=== PATIENT | male | born 1985 | race Caucasian/White ===

== ENCOUNTER 2021-09-11 15:22 | Emergency (ER) | payer OTHER ==
[2021-09-11 15:37] VITALS: RESP 18; TEMP 98
[2021-09-11] MEDS ORDERED: SODIUM CHLORIDE 0.9% 1,000 ML IV STA (15:55)
[2021-09-11] MEDS ORDERED: GLUCAGON 1 MG/ML VIAL IVP STA (15:55)
[2021-09-11] MEDS ORDERED: ONDANSETRON 4 MG/2 ML VIAL IVP STA (15:56)
--- NOTE | 2021-09-11 15:59 | ED ---
General Adult HPI - General Chief complaint: Recheck/Abnormal Lab/Rx Stated complaint: object stuck in throat Time Seen by Provider: 09/11/21 15:41 Source: patient Mode of arrival: ambulatory Limitations: no limitations - History of Present Illness Initial comments: Dictation was produced using [employer] dictation software. please excuse any grammatical, word or spelling errors. Chief Complaint: 36-year-old male with esophageal foreign body History of Present Illness: 36 yo showed no he was eating steak 1 hour prior to arrival when he felt like a piece of steak stuck in his throat. He reports that it was her line and it was cooked medium rare. Patient denies having any history of impacted food bolus. Denies any pain. States is comfortable is spitting up. No trouble breathing. The ROS documented in this emergency department record has been reviewed and confirmed by me. Those systems with pertinent positive or negative responses have been documented in the HPI. All other systems are other negative and/or noncontributory. PHYSICAL EXAM: General Impression: Alert and oriented x3, spitting up HEENT: Normocephalic atraumatic, extra-ocular movements intact, pupils equal and reactive to light bilaterally, mucous membranes moist. Cardiovascular: Heart regular rate and rhythm Chest: Able to complete full sentences, no retractions, no tachypnea Abdomen: abdomen soft, non-tender, non-distended, no organomegaly Musculoskeletal: Pulses present and equal in all extremities, no peripheral edema Motor: no focal deficits noted Neurological: CN II-XII grossly intact, no focal motor or sensory deficits noted Skin: Intact with no visualized rashes Psych: Normal affect and mood ED course: 36-year-old male presents emergency department for impacted food bolus. Signs upon arrival are within acceptable limits. We do not have GI coverage today. Spoke with Dr. dustin Louis who did not feel comfortable performing upper endoscopy for evaluation of impacted food bolus. Patient was given glucagon and IV fluids. at 410 pm he started to have very violent retching when he finally threw up a bunch of pickles, food and the large piece of steak. Food bolus appeared to be a 3" x 1" piece of unchewed beef. Patient feeling much better. Patient observed in emergency department for another 30 minutes. Reevaluated at bedside at 4:40 PM found with stable medical condition. Patient will be discharged as follow-up with primary care doctor. - Related Data Previous Rx's Medication Instructions Recorded Cephalexin [Keflex] 500 mg PO Q6HR #40 cap 03/10/16 Hydrocodone/Acetaminophen [[place] 1 tab PO Q6HR PRN #20 tab 03/10/16 5-325] Allergies Allergy/AdvReac Type Severity Reaction Status Date / Time No Known Allergies Allergy Verified 09/11/21 15:37 Review of Systems ROS Statement: Those systems with pertinent positive or pertinent negative responses have been documented in the HPI. ROS Other: All systems not noted in ROS Statement are negative. Past Medical History Past Medical History: No Reported History History of Any Multi-Drug Resistant Organisms: None Reported Additional Past Surgical History / Comment(s): knee surgery Past Psychological History: No Psychological Hx Reported Smoking Status: Never smoker Past Alcohol Use History: Occasional Past Drug Use History: None Reported General Exam Limitations: no limitations Course Vital Signs 09/11/21 15:33 Temperature 98.0 F Pulse Rate 87 Respiratory 18 Rate Blood Pressure 129/84 O2 Sat by Pulse 95 Oximetry Disposition Clinical Impression: Food impaction of esophagus Disposition: HOME SELF-CARE Condition: Good Instructions (If sedation given, give patient instructions): Food Impaction (ED) Is patient prescribed a controlled substance at d/c from ED?: No Referrals: None,Stated [Primary Care Provider] - 1-2 days
[2021-09-11 17:04] VITALS: BP 126/80; PULSE 80
== END 2021-09-11 17:04 | disposition home or self-care (01) ==
LOC: EC 15:22
DX: T18.128A Food in esophagus causing other injury, initial encounter (principal)
CPT/HCPCS: 99283; 96374; 96375; 96361; J1610; J2405

== ENCOUNTER 2023-01-27 14:17 | Emergency (ER) | payer OTHER ==
[2023-01-27] MEDS ORDERED: GLUCAGON 1 MG/ML VIAL IVP STA (14:55)
[2023-01-27] MEDS ORDERED: NITROGLYCERIN SL TABS 0.4 MG TAB SUBLINGUAL STA (14:55)
[2023-01-27] MEDS ORDERED: METOCLOPRAMIDE 5 MG/ML 2 ML VIAL IVP STA (14:55)
--- NOTE | 2023-01-27 15:31 | ED ---
ENT HPI - General Chief complaint: ENT Stated complaint: food lodged in throat Time Seen by Provider: 01/27/23 14:55 Source: patient, RN notes reviewed Mode of arrival: ambulatory Limitations: no limitations - History of Present Illness Initial comments: 37-year-old male presents emergency Department chief complaint esophageal food bolus. Patient states that he was eating a roast recently and which got caught in his throat. He's had this happen the past. He is unable to swallow any fluids including his own spit. - Related Data Previous Rx's Medication Instructions Recorded Cephalexin [Keflex] 500 mg PO Q6HR #40 cap 03/10/16 Hydrocodone/Acetaminophen [[place] 1 tab PO Q6HR PRN #20 tab 03/10/16 5-325] Allergies Allergy/AdvReac Type Severity Reaction Status Date / Time No Known Allergies Allergy Verified 01/27/23 14:40 Review of Systems ROS Statement: Those systems with pertinent positive or pertinent negative responses have been documented in the HPI. ROS Other: All systems not noted in ROS Statement are negative. 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 Absent: scleral icterus, conjunctival injection, periorbital swelling ENT exam: Present: normal exam, mucous membranes moist Neck exam: Present: normal inspection. Absent: tenderness, meningismus, lymphadenopathy Respiratory exam: Present: normal lung sounds bilaterally. Absent: respiratory distress, wheezes, rales, rhonchi, stridor Cardiovascular Exam: Present: regular rate, normal rhythm, normal heart sounds. Absent: systolic murmur, diastolic murmur, rubs, gallop, clicks Medical Decision Making - Medical Decision Making Was pt. sent in by a medical professional or institution (, PA, BUS DRIVER SUPERVISOR, urgent care, hospital, or correction...) When possible be specific @ -No Did you speak to anyone other than the patient for history (EMS, parent, family, police, friend...)? What history was obtained from this source @ -No Did you review nursing and triage notes (agree or disagree)? Why? @ -I reviewed and agree with nursing and triage notes Were old charts reviewed (outside hosp., previous admission, EMS record, old EKG, old radiological studies, urgent care reports/EKG's, correction records)? Report findings @ -No old charts were reviewed Differential Diagnosis (chest pain, altered mental status, abdominal pain women, abdominal pain men, vaginal bleeding, weakness, fever, dyspnea, syncope, headache, dizziness, GI bleed, back pain, seizure, CVA, palpatations, mental health, musculoskeletal)? @ -Esophageal food bolus EKG interpreted by me (3pts min.). @ -None X-rays interpreted by me (1pt min.). @ -None done CT interpreted by me (1pt min.). @ -None done U/S interpreted by me (1pt. min.). @ -None done What testing was considered but not performed or refused? (CT, X-rays, U/S, labs)? Why? @ -None What meds were considered but not given or refused? Why? @ -None Did you discuss the management of the patient with other professionals (professionals i.e. , PA, BUS DRIVER SUPERVISOR, lab, RT, psych nurse, psychiatric social worker, bat person, teacher, financial officer, binder caser)? Give summary @ -No Was smoking cessation discussed for >3mins.? @ -No Was critical care preformed (if so, how long)? @ -No Were there social determinants of health that impacted care today? How? (Homelessness, low income, unemployed, alcoholism, drug addiction, transportation, low edu. Level, literacy, decrease access to med. care, fpc, rehab)? @ -No Was there de-escalation of care discussed even if they declined (Discuss DNR or withdrawal of care, Hospice)? DNR status @ -No What co-morbidities impacted this encounter? (DM, HTN, Smoking, COPD, CAD, Cancer, CVA, ARF, Chemo, Hep., AIDS, mental health diagnosis, sleep apnea, morbid obesity)? @ -None Was patient admitted / discharged? Hospital course, mention meds given and route, prescriptions, significant lab abnormalities, going to OR and other pertinent info. @ -Patient was given glucagon, Reglan, Valium patient was able to swallow fluids after he states that he cleared esophageal food bolus with no palpitations patient is discharged she is advised that needs to follow up for EGD. Undiagnosed new problem with uncertain prognosis? @ -No Drug Therapy requiring intensive monitoring for toxicity (Heparin, Nitro, Insulin, Cardizem)? @ -No Were any procedures done? @ -No Diagnosis/symptom? @ -Esophageal food bolus Acute, or Chronic, or Acute on Chronic? @ -Acute Uncomplicated (without systemic symptoms) or Complicated (systemic symptoms)? @ -Uncomplicated Side effects of treatment? @ -No Exacerbation, Progression, or Severe Exacerbation? @ -No Poses a threat to life or bodily function? How? (Chest pain, [place], [place], pneumonia, PE, COPD, DKA, ARF, appy, cholecystitis, CVA, Diverticulitis, Homicidal, Suicidal, threat to staff... and all critical care pts) @ -No Disposition Clinical Impression: Esophageal obstruction due to food impaction Disposition: HOME SELF-CARE Condition: Stable Instructions (If sedation given, give patient instructions): Esophageal Foreign Body (ED) Additional Instructions: Please return to the Emergency Department if symptoms worsen or any other concerns. Is patient prescribed a controlled substance at d/c from ED?: No Referrals: None,Stated [Primary Care Provider] - 1-2 days Chely Snow MD [STAFF PHYSICIAN] - 1-2 days Time of Disposition: 15:30
[2023-01-27 16:01] VITALS: BP 126/78; PULSE 80; RESP 18; TEMP 98
== END 2023-01-27 16:01 | disposition home or self-care (01) ==
LOC: EC 14:17
DX: K22.2 Esophageal obstruction (principal)
CPT/HCPCS: 99283; 96374; 96375 ×2; J1610; J2765; J3360

== ENCOUNTER 2023-05-12 10:43 | Day surgery (SDC) | payer OTHER ==
[~2023-05-12 10:43] MED LIST: LIDOCAINE 1% (10MG/ML) FOR IV START INTRADERMA PRN
[2023-05-12] MEDS: LACTATED RINGERS 1,000 ML IV SCH ×2 (11:11→12:46)
[2023-05-12 11:18] VITALS: RESP 16; TEMP 98.2
[2023-05-12] MEDS ORDERED: PROPOFOL 10 MG/ML 20 ML VIAL IV ONE (12:50)
[2023-05-12] MEDS ORDERED: MIDAZOLAM 2 MG/2 ML VIAL ONE (12:50)
--- NOTE | 2023-05-12 13:04 | P.PCN ---
Date of Procedure: 05/12/23 Procedure(s) Performed: BRIEF HISTORY: Patient is a 38-year-old, pleasant, white male scheduled for an upper endoscopy as a part of evaluation of intermittent dysphagia to solids for the last 2 years duration. He had 2 episodes of acute food impaction for which she went to the emergency room and symptoms resolved spontaneously. Her last episode was in January of this year. He is scheduled for an upper endoscopy with possible dilation. PROCEDURE PERFORMED: Esophagogastroduodenoscopy with biopsy and dilation. PREOPERATIVE DIAGNOSIS: Intermittent dysphagia to solids of 2 years duration. IV sedation per anesthesia. PROCEDURE: After informed consent was obtained, the patient was brought into [facility] endoscopy unit. IV sedation was administered by Anesthesia under continuous monitoring. Initially the Olympus GIF-140 video endoscope was inserted into the mouth. Esophagus intubated without any difficulty. It was gradually advanced into the stomach and duodenum and carefully examined. The bulb and the second part of the duodenum appeared normal. The scope at this time was withdrawn to the stomach, adequately insufflated with air, and upon careful examination, mucosa of the antrum, body, cardia and the fundus appeared normal. The scope was then withdrawn into the esophagus. Small hiatal hernia noted. The GE junction was located at 39 cm from the incisors. There was a 1 cm GE junction polyp that was biopsied. Just proximal to the GE junction there was a distal esophageal stricture identified and this was dilated using 15 and 16.5 to TTS balloon in a sequential fashion for 30 seconds. The esophagus in the mid and distal esophagus had longitudinal ridges and furrows with some erosions or suspicious for years of age esophagitis and multiple biopsies were done from this area.. The patient tolerated the procedure well. IMPRESSION: 1. Linear erosions with longitudinal ridges and furrows involving the entire esophagus consistent with the use of esophagitis status post multiple biopsies. 2. Distal esophageal stricture status post balloon dilation using 15 and 16.5 mm TTS balloon as described above 3. Small hiatal hernia 4. 1 cm GE junction polyp status post biopsy. RECOMMENDATIONS: The findings of this examination were discussed with the patient as well as his family. He was advised to be on a clear liquid diet for 2 hours. Follow with the biopsy results. Follow up in office in 2 weeks.. The meantime he'll be started on Prilosec 20 mg twice daily.
[2023-05-12 13:32] VITALS: BP 137/71; PULSE 73
== END 2023-05-12 13:48 | disposition home or self-care (01) ==
LOC: ORWHC2ENDO 10:43
PROVIDERS: ATTEND Internal Medicine Gastroenterology
DX: K20.90 Esophagitis, unspecified without bleeding (principal); K22.82 Esophagogastric junction polyp; K22.2 Esophageal obstruction; K44.9 Diaphragmatic hernia without obstruction or gangrene; Z98.890 Other specified postprocedural states; Z86.79 Personal history of other diseases of the circulatory system; F17.200 Nicotine dependence, unspecified, uncomplicated
CPT/HCPCS: 88305; 43239; 43249; J2250; J2704; C1726

== ENCOUNTER 2024-10-24 08:39 | Emergency (ER) | payer OTHER ==
[2024-10-24] MEDS: BACITRACIN OINT 1 EACH PACKET TOPICAL ONE (09:08)
[2024-10-24] MEDS: LIDOCAINE 1% INJ 10MG/ML (20 ML MDV) SQ ONE (09:08)
--- NOTE | 2024-10-24 09:39 | ED ---
Wound/Laceration HPI - General Chief Complaint: Wound/Laceration Stated Complaint: R wrist laceration - [facility] Time Seen by Provider: 10/24/24 08:45 Source: patient, RN notes reviewed Mode of arrival: ambulatory Limitations: no limitations - History of Present Illness Initial Comments: 39-year-old male presents emergency department complaint of right wrist laceration. Patient states he slipped with a razor blade brand-new and razor blade cutting his wrist. Patient states his tetanus up-to-date full range of motion no paresthesias no other complaints. - Related Data Home Medications Medication Instructions Recorded Confirmed No Known Home Medications 05/11/23 05/11/23 Allergies Allergy/AdvReac Type Severity Reaction Status Date / Time Milk Containing Products Allergy Rash/Hives Verified 10/24/24 08:51 (Dairy) [Dairy] Review of Systems ROS Statement: Those systems with pertinent positive or pertinent negative responses have been documented in the HPI. ROS Other: All systems not noted in ROS Statement are negative. 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 Absent: respiratory distress, wheezes, rales, rhonchi, stridor Cardiovascular Exam: Present: regular rate, normal rhythm, normal heart sounds. Absent: systolic murmur, diastolic murmur, rubs, gallop, clicks Extremities exam: Present: other (Right distal forearm region there is a 3 cm laceration no tendon involvement neurovascular intact) Course Vital Signs 10/24/24 08:49 Temperature 98 F Pulse Rate 69 Respiratory 16 Rate Blood Pressure 127/80 O2 Sat by Pulse 97 Oximetry Procedures - Laceration Laceration #1 Consent Obtained: verbal consent Indication: laceration Site: upper extremity Size (cm): 3 Description: linear Depth: simple, single layer Anesthetic Used: lidocaine 1%, without epi Anesthesia Technique: local infiltration Amount (mls): 3 Pre-repair: wound explored, irrigated extensively, deep structures intact Type of Sutures: nylon Size of Sutures: 4-0 Number of Sutures: 3 Technique: simple, interrupted Patient Tolerated Procedure: well, no complications Medical Decision Making - Medical Decision Making Was pt. sent in by a medical professional or institution (VERA Chung, DIRECTOR MEDICAL AFFAIRS, urgent care, hospital, or longterm...) When possible be specific @ -No Did you speak to anyone other than the patient for history (EMS, parent, family, police, friend...)? What history was obtained from this source @ -No Did you review nursing and triage notes (agree or disagree)? Why? @ -I reviewed and agree with nursing and triage notes Were old charts reviewed (outside hosp., previous admission, EMS record, old EKG, old radiological studies, urgent care reports/EKG's, longterm records)? Report findings @ -No old charts were reviewed Differential Diagnosis (chest pain, altered mental status, abdominal pain women, abdominal pain men, vaginal bleeding, weakness, fever, dyspnea, syncope, headache, dizziness, GI bleed, back pain, seizure, CVA, palpatations, mental health, musculoskeletal)? @ -Laceration, abrasion EKG interpreted by me (3pts min.). @ -None X-rays interpreted by me (1pt min.). @ -None done CT interpreted by me (1pt min.). @ -None done U/S interpreted by me (1pt. min.). @ -None done What testing was considered but not performed or refused? (CT, X-rays, U/S, labs)? Why? @ -None What meds were considered but not given or refused? Why? @ -None Did you discuss the management of the patient with other professionals (professionals i.e. VERA Chung, DIRECTOR MEDICAL AFFAIRS, lab, RT, psych nurse, social work specialist, personal coach, teacher, assignment officer, family service caseworker)? Give summary @ -No Was smoking cessation discussed for >3mins.? @ -No Was critical care preformed (if so, how long)? @ -No Were there social determinants of health that impacted care today? How? (Homelessness, low income, unemployed, alcoholism, drug addiction, transportation, low edu. Level, literacy, decrease access to med. care, custodial, rehab)? @ -No Was there de-escalation of care discussed even if they declined (Discuss DNR or withdrawal of care, Hospice)? DNR status @ -No What co-morbidities impacted this encounter? (DM, HTN, Smoking, COPD, CAD, Cancer, CVA, ARF, Chemo, Hep., AIDS, mental health diagnosis, sleep apnea, morbid obesity)? @ -None Was patient admitted / discharged? Hospital course, mention meds given and route, prescriptions, significant lab abnormalities, going to OR and other pertinent info. @ -Discharge laceration was closed using sutures wound care instruction provided return parameters provided tetanus up-to-date Undiagnosed new problem with uncertain prognosis? @ -No Drug Therapy requiring intensive monitoring for toxicity (Heparin, Nitro, Insulin, Cardizem)? @ -No Were any procedures done? @ -Laceration repair Diagnosis/symptom? @ -Laceration right wrist Acute, or Chronic, or Acute on Chronic? @ -Acute Uncomplicated (without systemic symptoms) or Complicated (systemic symptoms)? @ -uncomplicated Side effects of treatment? @ -No Exacerbation, Progression, or Severe Exacerbation? @ -No Poses a threat to life or bodily function? How? (Chest pain, [place], [place], pneumonia, PE, COPD, DKA, ARF, appy, cholecystitis, CVA, Diverticulitis, Homicidal, Suicidal, threat to staff... and all critical care pts) @ -No Disposition Clinical Impression: Laceration of right forearm Disposition: HOME SELF-CARE Condition: Stable Instructions (If sedation given, give patient instructions): Care For Your Stitches (ED), Laceration (ED) Additional Instructions: Have sutures removed in 10 days. Please return to the Emergency Department if symptoms worsen or any other concerns. Is patient prescribed a controlled substance at d/c from ED?: No Referrals: None,Stated [Primary Care Provider] - 1-2 days Time of Disposition: 09:36
[2024-10-24 10:06] VITALS: BP 120/74; PULSE 76; RESP 18; TEMP 98
== END 2024-10-24 10:02 | disposition home or self-care (01) ==
LOC: EC 08:39
DX: S51.811A Laceration without foreign body of right forearm, initial encounter (principal); Z91.011 Allergy to milk products; W26.8XXA Contact with other sharp object(s), not elsewhere classified, initial encounter
CPT/HCPCS: 99282; 12002; J2003